=== PATIENT | male | born 1960 | race Two or more races ===

== ENCOUNTER 2017-02-16 08:31 | Day surgery (SDC) | payer BC ==
[~2017-02-16] VITALS: Ht 166.4 cm; Wt 83.0 kg
[~2017-02-16 08:31] MED LIST: FISH OIL1 GM PO
== END 2017-02-16 10:21 | disposition short-term general hospital (02) ==
LOC: SURGOP 08:31
PROC: 0DBE8ZZ Excision of Large Intestine, Via Natural or Artificial Opening Endoscopic (ICD-10-PCS; principal; 2017-02-16)
DX: Z12.11 Encounter for screening for malignant neoplasm of colon (principal); D12.6 Benign neoplasm of colon, unspecified; K57.30 Diverticulosis of large intestine without perforation or abscess without bleeding; K59.00 Constipation, unspecified; Z87.891 Personal history of nicotine dependence; Z79.899 Other long term (current) drug therapy
CPT/HCPCS: J2175; J2250